=== PATIENT | female | born 1985 | race Hispanic/Latino ===

== ENCOUNTER 2025-01-04 17:22 | Emergency (ER) | payer OTHER ==
[~2025-01-04] VITALS: Ht 160 cm; Wt 62.2 kg
[~2025-01-04 17:22] MED LIST: CHLORDIAZEPOXID25 MG PO; FOLIC ACID1 MG PO; LISINOPRIL40 MG PO; MAG-OXIDE400 MG PO; MAGNESIUM OXID400 M1 PO; MAGOX 400400 MG PO; METOPROLOL SUCC25 MG PO; NALTREXONE HCL50 MG PO; OMEPRAZOLE20 MG PO; ONDANSETRON ODT8 MG PO; POTASSIUM CHLO20 ME1 PO; THIAMINE HCL100 MG PO; VIVITROL380 MG IM; XANAX0.5 MG PO
[2025-01-04 18:35] LABS: BASOPHILS 0.7 % (0-2); HEMATOCRIT 38.1 % (35.0-50.0); HEMOGLOBIN 13.2 g/dL (12.0-18.0); LYMPHOCYTES 34.6 % (24-44); MCH 29.7 (27-36); MCHC 34.6 g/dl (30-36); MCV 85.7 fl (81-99); MONOCYTES 5.7 % (0-12); PLATELET COUNT 157 K/uL (140-440); RBC 4.44 M/ul (4.3-5.7); RDW 19.7 (10.5-15.0)
[2025-01-04 18:56] LABS: ACETAMINOPHEN 0 ug/mL (10-30); ALBUMIN/GLOBULIN RATIO 0.87 (1.1-2.4); ALKALINE PHOSPHATASE 52 U/L (46-116); ALT (SGPT) 26 U/L (14-59); ANION GAP 18.4 (7-21); AST (SGOT) 37 U/L (15-37); BILIRUBIN, TOTAL 0.4 mg/dL (0.2-1.0); CALCIUM 8.6 mg/dL (8.5-10.1); CARBON DIOXIDE 26 mmol/L (21-32); CHLORIDE 99 mmol/L (98-107); CREATININE, SERUM 0.51 mg/dL (0.55-1.02); GLOMERULAR FILTRATION RATE,EST 121 mL/min (>60); POTASSIUM 4.4 mmol/L (3.5-5.1); PROTEIN, TOTAL 8.6 g/dL (6.4-8.2); SALICYLATE 1.4 mg/dL (2.8-20.0); UREA NITROGEN 5 mg/dL (7-18)
[2025-01-04 18:59] LABS: ALCOHOL, MEDICAL 372 ng/dL (<3)
[2025-01-04] MEDS ORDERED: IBUPROFEN 600 MG TAB PO ONE (19:45)
[2025-01-04] MEDS ORDERED: ONDANSETRON 4 MG TAB ODT SL ONE (19:45)
[2025-01-04 19:46] LABS: AMPHETAMINES, URINE NEGATIVE (NEGATIVE); BARBITURATES, URINE NEGATIVE (NEGATIVE); BENZODIAZEPINE, URINE NEGATIVE (NEGATIVE); BUPRENORPHINE, URINE NEGATIVE (NEGATIVE); CANNABINOID, URINE NEGATIVE (NEGATIVE); COCAINE, URINE NEGATIVE (NEGATIVE); ECSTASY, URINE NEGATIVE (NEGATIVE); FENTANYL, URINE NEGATIVE (NEGATIVE); METHADONE, URINE NEGATIVE (NEGATIVE); OPIATES, URINE NEGATIVE (NEGATIVE); OXYCODONE, URINE NEGATIVE (NEGATIVE); PHENCYCLIDINE, URINE NEGATIVE (NEGATIVE)
[2025-01-04] MEDS ORDERED: LORazepam 1 MG TAB PO ONE (22:15)
[2025-01-04] MEDS ORDERED: PROMETHAZINE HCL 25 MG TAB PO ONE (22:15)
[2025-01-05 00:10] VITALS: BP 101/84
== END 2025-01-05 00:10 | disposition left against medical advice (07) ==
LOC: ED 17:22
PROVIDERS: Emergency Medicine
DX: F10.139 Alcohol abuse with withdrawal, unspecified (principal); R45.851 Suicidal ideations; Z79.899 Other long term (current) drug therapy; Z53.29 Procedure and treatment not carried out because of patient's decision for other reasons
CPT/HCPCS: 36415; 80053; 80307; 84443; 84703; 85025; 99284; A9270; A9270-GY; G0480

== ENCOUNTER 2025-06-09 15:22 | Emergency (ER) | payer OTHER ==
[~2025-06-09] VITALS: Ht 160 cm; Wt 58.0 kg
--- OUTSIDE RECORDS SUMMARY | ~2025-06-09 | XMS | Continuity of Care Document ---
Demographics + + + | Address | [address] | | | [place] [address] | + + + | Preferred Language | Unknown | + + + | Marital Status | Unknown | + + + | Sikh Affiliation | Unknown | + + + | Race | Unknown | + + + | Ethnic Group | Not or | + + + Author + + + | Author | [facility] | + + + | Organization | [facility] | + + + | Address | [address] | | | [place] [address] | + + + | Phone | | + + + Care Team Providers + + + + | Care Environmental Studies Department Chair Name | Role | Phone | + + + + Unavailable | Unavailable | + + + + Allergies No information. Encounters No information. Functional Status No information. Immunizations No information. Medications No information. Problems + + + + | date | description | facility | + + + + | 2025-04-28 02:51:51 | Alcohol use, unspecified, | IHDE | | | uncomplicated | | + + + + | 2025-04-28 02:51:51 | Alcohol use, unspecified | IHDE | | | with intoxication, | | | | uncomplicated | | + + + + Procedures No information. Results/Labs No information. Social History +--------+ + + | date | description | facility | +--------+ + + Vital Signs No information."
--- OUTSIDE RECORDS SUMMARY | 2025-06-09 15:29 | XMS ---
PreManage Notification: DON PEARSON Security Sane Rn Events No recent Security Events currently on file CRITERIA MET - [facility] - 2 Visits in 30 Days - [facility] - 3 Facilities in 90 Days CARE PROVIDERS BOBBI GRAY [facility] Current PHONE: [phone] NEO ORTIZ [facility] Current PHONE: Unknown Halina has no Care Guidelines for this patient. EArchie VISIT COUNT (12 MO.) [address] [place] TOTAL 5 NOTE: Visits indicate total known visits. ED/UCC VISIT TRACKING (12 MO.) 06/09/2025 15:23 [facility] [place] TYPE: Emergency COMPLAINT: - WITHDRAWL SYMPTOMS 05/20/2025 16:27 [facility] [place] TYPE: Emergency DIAGNOSES: - Alcohol use, unspecified with withdrawal, uncomplicated - ALCOHOL DETOX 04/27/2025 21:05 [facility] [place] TYPE: Emergency DIAGNOSES: - Alcohol use, unspecified with intoxication, uncomplicated - Alcohol use, unspecified, uncomplicated - Alcohol detox 01/04/2025 17:23 [facility] [place] TYPE: Emergency COMPLAINT: - WITHDRAWL DIAGNOSES: - Alcohol abuse with withdrawal, unspecified - Other terminal press operator (current) drug therapy - Procedure and treatment not carried out because of patient's decision for other reasons - Suicidal ideations 08/13/2024 19:45 [facility] [place] TYPE: Emergency COMPLAINT: - VOMITING INPATIENT VISIT TRACKING (12 MO.) 08/14/2024 09:21 [facility] [place] TYPE: Medical Surgical COMPLAINT: - ETOH WITHDRAWAL/DEHYDRATION/NAUSEA/VOMITING DIAGNOSES: - Acute kidney failure, unspecified - Acute kidney failure, unspecified - Alcohol abuse with withdrawal, unspecified - Alcohol abuse with withdrawal, unspecified - Alcohol dependence with withdrawal, unspecified - Alcohol induced acute pancreatitis without necrosis or infection - Alcohol induced acute pancreatitis without necrosis or infection - Dehydration - Dehydration - Fatty (change of) liver, not elsewhere classified - Fatty (change of) liver, not elsewhere classified - Hypokalemia - Hypokalemia - Hypomagnesemia - Hypomagnesemia - Other terminal press operator (current) drug therapy - Other terminal press operator (current) drug therapy - Other pancytopenia - Other pancytopenia - Other secondary thrombocytopenia - Other secondary thrombocytopenia [id number]
[2025-06-09 15:53] LABS: BASOPHILS 0.8 % (0.1-1.2); EOSINOPHILS 2.1 % (0.7-5.8); LYMPHOCYTES 16.6 % (19.3-51.7); MCH 23.8 PG (25.6-32.2); MCHC 31.2 g/dL (32.2-35.5); MCV 76.4 fL (79.4-94.8); MONOCYTES 4.2 % (4.7-12.5); NEUTROPHILS 76.0 % (34.0-71.1); RBC 4.45 M/uL (3.93-5.22)
[2025-06-09] MEDS ORDERED: SODIUM CHLORIDE 0.9% 500 ML IV ONE (16:00)
[2025-06-09] MEDS ORDERED: SODIUM CHLORIDE 0.9% 1,000 ML IV PRN (16:00)
[2025-06-09 16:05] LABS: ALT (SGPT) 39.0 U/L (14-59); AST (SGOT) 63.0 U/L (15-37); GLOMERULAR FILTRATION RATE,EST 100.0 mL/min (>60); PROTEIN, TOTAL 8.8 g/dL (6.4-8.2); UREA NITROGEN 5.0 mg/dL (7-18)
[2025-06-09] MEDS ORDERED: LORazepam 2 MG/ML VIAL IV ONE (16:15)
[2025-06-09] MEDS ORDERED: CHLORDIAZEPOXIDE 25 MG CAP PO ONE (16:45)
[2025-06-09] MEDS ORDERED: CHLORDIAZEPOXID25 MG PO (17:29)
[2025-06-09 17:40] VITALS: BP 121/93
== END 2025-06-09 17:45 | disposition home or self-care (01) ==
LOC: ED 15:22
PROVIDERS: Emergency Medicine
DX: F10.939 Alcohol use, unspecified with withdrawal, unspecified (principal); Z88.8 Allergy status to other drugs, medicaments and biological substances; Z79.899 Other long term (current) drug therapy
CPT/HCPCS: 36415; 80053; 83735; 84703; 85025; 96374; 96375; 99284-25; J2060; J2405; J7030

== ENCOUNTER 2025-07-13 21:08 | Emergency (ER) | payer OTHER ==
[~2025-07-13] VITALS: Ht 160 cm; Wt 56.0 kg
--- OUTSIDE RECORDS SUMMARY | ~2025-07-13 | XMS | Continuity of Care Document ---
Demographics + + + | Address | [address] | | | [place] [address] | + + + | Preferred Language | Unknown | + + + | Marital Status | Unknown | + + + | Sikh Affiliation | Unknown | + + + | Race | Unknown | + + + | Ethnic Group | Not or | + + + Author + + + | Author | [place] | + + + | Organization | [place] | + + + | Address | [address] | | | [place] [address] | + + + | Phone | | + + + Care Team Providers + + + + | Care General Manager In Training Name | Role | Phone | + [...]
--- OUTSIDE RECORDS SUMMARY | 2025-07-13 21:11 | XMS ---
PreManage Notification: DON PEARSON Security Money Counter Events No recent Security Events currently on file CRITERIA MET - [facility] - 2 Visits in 30 Days - [facility] - 3 Facilities in 90 Days CARE PROVIDERS BOBBI GRAY [facility] Current PHONE: [phone] NEO ORTIZ [facility] Current PHONE: Unknown Halina has no Care Guidelines for this patient. E.Jaren VISIT COUNT (12 MO.) 4 [facility] 1 [facility] [address] [facility] [place] TOTAL 7 NOTE: Visits indicate total known visits. ED/UCC VISIT TRACKING (12 MO.) 07/13/2025 21:09 [facility] TYPE: Emergency COMPLAINT: - ETOH WITHDRAWAL 06/27[facility]2025 13[facility] TYPE: Emergency DIAGNOSES: - Acute kidney failure, unspecified - Alcohol use, unspecified with intoxication, uncomplicated - Alcohol use, unspecified with withdrawal, uncomplicated - Hypo-osmolality and hyponatremia - Alcohol Detox - Withdrawal (Alcohol) 06/09/2025 15:23 [facility] [place] TYPE: Emergency COMPLAINT: - WITHDRAWL SYMPTOMS DIAGNOSES: - Alcohol use, unspecified with withdrawal, unspecified - Allergy status to other drugs, medicaments and biological substances - Other extermination supervisor (current) drug therapy 05/20/2025 16:27 [facility] [place] TYPE: Emergency DIAGNOSES: - Alcohol use, unspecified with withdrawal, uncomplicated - ALCOHOL DETOX 04/27/2025 21:05 [facility] [place] TYPE: Emergency DIAGNOSES: - Alcohol use, unspecified with intoxication, uncomplicated - Alcohol use, unspecified, uncomplicated - Alcohol detox 01/04/2025 17:23 [facility] [place] TYPE: Emergency COMPLAINT: - WITHDRAWL DIAGNOSES: - Alcohol abuse with withdrawal, unspecified - Other nursing home (current) drug therapy - Procedure and treatment not carried out because of patient's decision for other reasons - Suicidal ideations 08/13/2024 19:45 [facility] [place] TYPE: Emergency COMPLAINT: - VOMITING INPATIENT VISIT TRACKING (12 MO.) 06/27/2025 13:52 [facility] ([place]) TYPE: Medical Surgical DIAGNOSES: - Acute kidney failure, unspecified - Alcohol dependence with intoxication, unspecified - Alcohol use, unspecified with intoxication, uncomplicated - Alcohol use, unspecified with withdrawal, uncomplicated - Hypo-osmolality and hyponatremia - Nausea with vomiting, unspecified - Other pancytopenia 08/14/2024 09:21 [facility] [place] TYPE: Medical [...] Hypokalemia - Hypomagnesemia - Hypomagnesemia - Other nursing home (current) drug therapy - Other extermination supervisor (current) drug therapy - Other pancytopenia - Other pancytopenia - Other secondary thrombocytopenia - Other secondary thrombocytopenia [id number]
[2025-07-13] MEDS ORDERED: FAMOTIDINE 20 MG/ 2 ML VIAL IV ONE (21:30)
[2025-07-13] MEDS ORDERED: THIAMINE HCL 200 MG/2 ML VIAL IV ONE (21:30)
[2025-07-13] MEDS ORDERED: LACTATED RINGER'S 1,000 ML IV ONE ×2 (21:30→22:30)
[2025-07-13 21:42] LABS: BASOPHILS 2.4 % (0.1-1.2); EOSINOPHILS 2.7 % (0.7-5.8); LYMPHOCYTES 40.1 % (19.3-51.7); MCH 23.9 PG (25.6-32.2); MCHC 30.7 g/dL (32.2-35.5); MCV 77.6 fL (79.4-94.8); MONOCYTES 6.0 % (4.7-12.5); NEUTROPHILS 48.8 % (34.0-71.1); RBC 4.15 M/uL (3.93-5.22)
[2025-07-13] MEDS ORDERED: LORazepam 2 MG/ML VIAL IV ONE (21:45)
[2025-07-13 21:58] LABS: ALT (SGPT) 115.0 U/L (14-59); AST (SGOT) 94.0 U/L (15-37); GLOMERULAR FILTRATION RATE,EST 110.0 mL/min (>60); PROTEIN, TOTAL 9.6 g/dL (6.4-8.2); UREA NITROGEN 5.0 mg/dL (7-18)
[2025-07-13 22:42] LABS: BLOOD/HGB, URINE TRACE-L (Negative); KETONE, URINE TRACE (Negative); LEUK ESTERASE, URINE TRACE (negative); NITRITE, URINE NEGATIVE (negative)
[2025-07-13 22:47] LABS: BACTERIA, URINE 1+ /hpf (negative); CASTS, URINE NONE SEEN \\lpf; CRYSTALS, URINE NONE SEEN (0-1+); EPITHELIAL CELLS, URINE SQUAMOUS 2+ /lpf (0-1+)
[2025-07-13 22:48] LABS: REFLEX CULTURE, URINE No (No)
[2025-07-13] MEDS ORDERED: MAGNESIUM OXIDE 400 MG TABLET PO ONE (23:00)
[2025-07-13] MEDS ORDERED: diazePAM 5 MG TAB PO ONE (23:15)
[2025-07-14] MEDS ORDERED: LORazepam 2 MG/ML VIAL IV/IM PRN (00:30)
[2025-07-14] MEDS ORDERED: LORazepam 1 MG TAB PO PRN (00:30)
[2025-07-14] MEDS ORDERED: LORazepam 2 MG/ML VIAL ONE (00:32)
[2025-07-14] MEDS ORDERED: LACTATED RINGER'S 1,000 ML IV SCH (00:45)
[2025-07-14] MEDS ORDERED: LORazepam 2 MG/ML VIAL IV SCH (02:00)
[2025-07-14 02:49] LABS: AMPHETAMINES, URINE NEGATIVE (NEGATIVE); BARBITURATES, URINE NEGATIVE (NEGATIVE); BENZODIAZEPINE, URINE NEGATIVE (NEGATIVE); CANNABINOID, URINE NEGATIVE (NEGATIVE); COCAINE, URINE NEGATIVE (NEGATIVE); ECSTASY, URINE NEGATIVE (NEGATIVE); FENTANYL, URINE NEGATIVE (NEGATIVE); METHADONE, URINE NEGATIVE (NEGATIVE); OPIATES, URINE NEGATIVE (NEGATIVE); OXYCODONE, URINE NEGATIVE (NEGATIVE); PHENCYCLIDINE, URINE NEGATIVE (NEGATIVE)
[2025-07-14 06:32] LABS: GLOMERULAR FILTRATION RATE,EST 120.0 mL/min (>60); UREA NITROGEN 6.0 mg/dL (7-18)
[2025-07-14] MEDS ORDERED: FOLIC ACID 1 MG/0.2 ML ML IV SCH (08:00)
[2025-07-14] MEDS ORDERED: THIAMINE HCL 200 MG/2 ML VIAL IV SCH (08:00)
[2025-07-14] MEDS ORDERED: PEPCID20 MG PO (09:44)
[2025-07-14] MEDS ORDERED: ONDANSETRON ODT4 MG PO (09:44)
[2025-07-14] MEDS ORDERED: LORazepam 1 MG TAB PO ONE (10:45)
[2025-07-14] MEDS ORDERED: ONDANSETRON 4 MG TAB ODT SL ONE (10:45)
[2025-07-14 11:10] VITALS: BP 115/85
[2025-07-15] MEDS ORDERED: MULTIVITAMINS THERAPEUTIC 1 EA TAB PO SCH (08:00)
== END 2025-07-14 11:10 | disposition home or self-care (01) ==
LOC: ED 21:08
PROVIDERS: Internal Medicine
DX: F10.129 Alcohol abuse with intoxication, unspecified (principal); I10 Essential (primary) hypertension; D61.818 Other pancytopenia; Z88.8 Allergy status to other drugs, medicaments and biological substances; Z79.899 Other long term (current) drug therapy
CPT/HCPCS: 36415; 80048; 80053; 80307; 81001; 83690; 83735; 84703; 85025; 96361; 96374; 96375; 96376; 99284-25; A9270; A9270-GY; J1790; J2060; J2405; J3411; J7121

== ENCOUNTER 2025-09-02 21:03 | Emergency (ER) | payer OTHER ==
[~2025-09-02] VITALS: Ht 160 cm; Wt 58.2 kg
[~2025-09-02 21:03] MED LIST changes: +ONDANSETRON ODT4 MG PO; +PEPCID20 MG PO
--- OUTSIDE RECORDS SUMMARY | 2025-09-02 21:05 | XMS ---
PreManage Notification: DON PEARSON Security Compounding And Finishing Supervisor Events No recent Security Events currently on file CRITERIA MET - 6 ED Visits in 6 Months - [facility] - 2 Visits in 30 Days - [facility] - 3 Facilities in 90 Days CARE PROVIDERS BOBBI GRAY [facility] Current PHONE: [phone] NEO ORTIZ [facility] Current PHONE: Unknown Halina has no Care Guidelines for this patient. E.D. VISIT COUNT (12 MO.) 4 [facility] 3 [facility] [address] [facility] TOTAL 9 NOTE: Visits indicate total known visits. ED/UCC VISIT TRACKING (12 MO.) 09/02/2025 21:05 [facility] [place] TYPE: Emergency COMPLAINT: - ALCOHOL WITHDRAWL 08/05/2025 19:01 [facility] [place] TYPE: Emergency DIAGNOSES: - Alcohol use, unspecified with withdrawal, uncomplicated - ALCOHOL WITHDRAWL 07/15/2025 23:22 [facility] [place] TYPE: Emergency COMPLAINT: - ALCOHOL DETOX DIAGNOSES: - ALCOHOL DETOX 07/13/2025 21:09 [facility] [place] TYPE: Emergency COMPLAINT: - ETOH WITHDRAWAL DIAGNOSES: - Alcohol abuse with intoxication, unspecified - Allergy status to other drugs, medicaments and biological substances - Essential (primary) hypertension - Nausea with vomiting, unspecified - Other rn long term care (current) drug therapy - Other pancytopenia 06/27/2025 [facility] Emergency DIAGNOSES: - Acute kidney failure, unspecified - Alcohol use, unspecified with intoxication, uncomplicated - Alcohol use, unspecified with withdrawal, uncomplicated - Hypo-osmolality and hyponatremia - Alcohol Detox - Withdrawal (Alcohol) 06/09/2025 15:23 [facility] [place] TYPE: Emergency COMPLAINT: - WITHDRAWL SYMPTOMS DIAGNOSES: - Alcohol use, unspecified with withdrawal, unspecified - Allergy status to other drugs, medicaments and biological substances - Other fci (current) drug therapy 05/20/2025 16:27 [facility] [place] TYPE: Emergency DIAGNOSES: - Alcohol use, unspecified with withdrawal, uncomplicated - ALCOHOL DETOX 04/27/2025 21:05 [facility] TYPE: Emergency DIAGNOSES: - Alcohol use, unspecified with intoxication, uncomplicated - Alcohol use, unspecified, uncomplicated - Alcohol detox 01/04/2025 17:23 [facility] [place] TYPE: Emergency COMPLAINT: - WITHDRAWL DIAGNOSES: - Alcohol abuse with withdrawal, unspecified - Other fci (current) drug therapy - Procedure and treatment not carried out because of patient's decision for other reasons - Suicidal ideations INPATIENT VISIT TRACKING (12 MO.) 07/15/2025 23:22 [facility] TYPE: Medical Surgical DIAGNOSES: - Alcohol use, unspecified with withdrawal, unspecified - Nausea with vomiting, unspecified 06/27/2025 13:52 [facility] BRASHER ([place] [place]) TYPE: Medical Surgical DIAGNOSES: - Acute kidney failure, unspecified - Alcohol dependence with intoxication, unspecified - Alcohol use, unspecified with intoxication, uncomplicated - Alcohol use, unspecified with withdrawal, uncomplicated - Hypo-osmolality and hyponatremia - Nausea with vomiting, unspecified - Other pancytopenia [id number]
[2025-09-02 21:24] LABS: BASOPHILS 0.8 % (0.1-1.2); EOSINOPHILS 0.9 % (0.7-5.8); LYMPHOCYTES 51.9 % (19.3-51.7); MCH 24.5 PG (25.6-32.2); MCHC 30.9 g/dL (32.2-35.5); MCV 79.2 fL (79.4-94.8); MONOCYTES 7.4 % (4.7-12.5); NEUTROPHILS 38.8 % (34.0-71.1); RBC 4.57 M/uL (3.93-5.22)
[2025-09-02] MEDS ORDERED: FAMOTIDINE 20 MG/ 2 ML VIAL IV ONE (21:30)
[2025-09-02] MEDS ORDERED: LACTATED RINGER'S 1,000 ML IV ONE ×2 (21:30→23:00)
[2025-09-02] MEDS ORDERED: THIAMINE HCL 200 MG/2 ML VIAL IV ONE (21:30)
[2025-09-02 21:51] LABS: ALT (SGPT) 36.0 U/L (14-59); AST (SGOT) 49.0 U/L (15-37); GLOMERULAR FILTRATION RATE,EST 119.0 mL/min (>60); PROTEIN, TOTAL 9.3 g/dL (6.4-8.2); UREA NITROGEN 4.0 mg/dL (7-18)
[2025-09-02 22:54] LABS: BLOOD/HGB, URINE NEGATIVE (Negative); KETONE, URINE NEGATIVE (Negative); LEUK ESTERASE, URINE SMALL (negative); NITRITE, URINE NEGATIVE (negative)
[2025-09-02 23:00] LABS: EPITHELIAL CELLS, URINE SQUAMOUS 4+ /lpf (0-1+)
[2025-09-02 23:01] LABS: BACTERIA, URINE 2+ /hpf (negative); CASTS, URINE NONE SEEN \\lpf; CRYSTALS, URINE NONE SEEN (0-1+); REFLEX CULTURE, URINE No (No)
[2025-09-02 23:08] LABS: AMPHETAMINES, URINE NEGATIVE (NEGATIVE); BARBITURATES, URINE NEGATIVE (NEGATIVE); BENZODIAZEPINE, URINE NEGATIVE (NEGATIVE); CANNABINOID, URINE NEGATIVE (NEGATIVE); COCAINE, URINE NEGATIVE (NEGATIVE); ECSTASY, URINE NEGATIVE (NEGATIVE); FENTANYL, URINE NEGATIVE (NEGATIVE); METHADONE, URINE NEGATIVE (NEGATIVE); OPIATES, URINE NEGATIVE (NEGATIVE); OXYCODONE, URINE NEGATIVE (NEGATIVE); PHENCYCLIDINE, URINE NEGATIVE (NEGATIVE)
[2025-09-02] MEDS ORDERED: ONDANSETRON ODT4 MG PO (23:41)
[2025-09-02] MEDS ORDERED: PEPCID20 MG PO (23:41)
[2025-09-02] MEDS ORDERED: NITROFURANTOIN MONOHYD MACROCR 100 MG HOME.PACK PO ONE (23:45)
[2025-09-02] MEDS ORDERED: ONDANSETRON 4 MG HOME.PACK SL ONE (23:45)
[2025-09-02] MEDS ORDERED: MACROBID 100 M100 MG PO (23:45)
[2025-09-03 00:10] VITALS: BP 104/69
== END 2025-09-03 00:10 | disposition home or self-care (01) ==
LOC: ED 21:03
PROVIDERS: Internal Medicine
DX: K29.20 Alcoholic gastritis without bleeding (principal); F10.90 Alcohol use, unspecified, uncomplicated; N39.0 Urinary tract infection, site not specified; I10 Essential (primary) hypertension; Z88.8 Allergy status to other drugs, medicaments and biological substances
CPT/HCPCS: 36415; 71045; 80053; 80307; 81001; 83690; 84703; 85025; 96361; 96374; 96375; 99285-25; A9270; G0480; J2405; J3411; J7121

== ENCOUNTER 2025-09-09 13:10 | Inpatient (IN) | payer OTHER ==
[~2025-09-09] VITALS: Ht 160 cm; Wt 59.8 kg
[~2025-09-09 13:10] MED LIST changes: +MACROBID 100 M100 MG PO
--- OUTSIDE RECORDS SUMMARY | 2025-09-09 13:17 | XMS ---
PreManage Notification: DON PEARSON Security It Lead Events No recent Security Events currently on file CRITERIA MET - 6 ED Visits in 6 Months - [facility] - 2 Visits in 30 Days - [facility] - 3 Facilities in 90 Days CARE PROVIDERS BOBBI GRAY [facility] Current PHONE: [phone] NEO ORTIZ [facility] Current PHONE: Unknown Halina has no Care Guidelines for this patient. E.D. VISIT COUNT (12 MO.) 5 [facility] 3 [facility] [address] [facility] TOTAL 10 NOTE: Visits indicate total known visits. ED/UCC VISIT TRACKING (12 MO.) 09/09/2025 13:11 [facility] [place] TYPE: Emergency COMPLAINT: - ALCOHOL WITHDRAWAL 09/02/2025 21:05 [facility] [place] TYPE: Emergency COMPLAINT: - ALCOHOL WITHDRAWL DIAGNOSES: - Alcohol abuse with withdrawal, unspecified - Alcohol use, unspecified, uncomplicated - Alcoholic gastritis without bleeding - Allergy status to other drugs, medicaments and biological substances - Essential (primary) hypertension - Urinary tract infection, site not specified 08/05/2025 19:01 [facility] [place] TYPE: Emergency DIAGNOSES: - Alcohol use, unspecified with withdrawal, uncomplicated - ALCOHOL WITHDRAWL 07/15/2025 23:22 [facility] [place] TYPE: Emergency COMPLAINT: - ALCOHOL DETOX DIAGNOSES: - ALCOHOL DETOX 07/13/2025 21:09 [facility] [place] TYPE: Emergency COMPLAINT: - ETOH WITHDRAWAL DIAGNOSES: - Alcohol abuse with intoxication, unspecified - Allergy status to other drugs, medicaments and biological substances - Essential (primary) hypertension - Nausea with vomiting, unspecified - Other joint terminal attack controller (current) drug therapy - Other pancytopenia 06/27/2025 13:52 [facility] TYPE: Emergency DIAGNOSES: - [...] drugs, medicaments and biological substances - Other joint terminal attack controller (current) drug therapy 05/20/2025 16:27 [facility] [place] TYPE: Emergency DIAGNOSES: - Alcohol use, unspecified with withdrawal, uncomplicated - ALCOHOL DETOX 04/27/2025 21:05 [facility] [place] TYPE: Emergency DIAGNOSES: - Alcohol use, unspecified with intoxication, uncomplicated - Alcohol use, unspecified, uncomplicated - Alcohol detox 01/04/2025 17:23 [facility] [place] [facility]: [facility] COMPLAINT: - WITHDRAWL DIAGNOSES: - Alcohol abuse with withdrawal, unspecified - Other joint terminal attack controller (current) drug therapy - Procedure and treatment not carried out because of patient's decision for other reasons - Suicidal ideations INPATIENT VISIT TRACKING (12 MO.) 07/15/2025 23:22 [facility] [place] TYPE: Medical Surgical DIAGNOSES: - Alcohol use, unspecified with withdrawal, unspecified - Nausea with vomiting, unspecified 06/27/2025 13:52 [facility] TYPE: Medical Surgical DIAGNOSES: - Acute kidney failure, unspecified - Alcohol dependence with intoxication, unspecified - Alcohol use, unspecified with intoxication, uncomplicated - Alcohol use, unspecified with withdrawal, uncomplicated - Hypo-osmolality and hyponatremia - Nausea with vomiting, unspecified - Other pancytopenia [id number]
[2025-09-09] MEDS ORDERED: SODIUM CHLORIDE 0.9% 500 ML IV ONE (13:45)
[2025-09-09] MEDS ORDERED: SODIUM CHLORIDE 0.9% 1,000 ML IV PRN (14:00)
[2025-09-09] MEDS ORDERED: LORazepam 2 MG/ML VIAL IV ONE (14:00)
[2025-09-09] MEDS ORDERED: PHENOBARBITAL SOD 130 MG/ML VIAL IV ONE (14:00)
[2025-09-09 14:10] LABS: BASOPHILS 0.7 % (0.1-1.2); EOSINOPHILS 1.4 % (0.7-5.8); LYMPHOCYTES 17.9 % (19.3-51.7); MCH 25.0 PG (25.6-32.2); MCHC 31.9 g/dL (32.2-35.5); MCV 78.3 fL (79.4-94.8); MONOCYTES 11.8 % (4.7-12.5); NEUTROPHILS 67.8 % (34.0-71.1); RBC 4.24 M/uL (3.93-5.22)
[2025-09-09 14:36] LABS: ALCOHOL, MEDICAL 255.0 mg/dL (<3); ALT (SGPT) 52.0 U/L (14-59); AST (SGOT) 111.0 U/L (15-37); GLOMERULAR FILTRATION RATE,EST 103.0 mL/min (>60); PROTEIN, TOTAL 9.1 g/dL (6.4-8.2); UREA NITROGEN 8.0 mg/dL (7-18)
[2025-09-09] MEDS ORDERED: FOLIC ACID 1 MG/0.2 ML ML IV SCH (15:44)
[2025-09-09] MEDS ORDERED: THIAMINE HCL 200 MG/2 ML VIAL IV SCH (15:44)
[2025-09-09] MEDS ORDERED: LORazepam 2 MG/ML VIAL IV/IM PRN (15:45)
[2025-09-09] MEDS ORDERED: ACETAMINOPHEN 325 MG TAB PO PRN (15:45)
[2025-09-09] MEDS ORDERED: LACTATED RINGER'S 1,000 ML IV SCH (15:45)
[2025-09-09] MEDS ORDERED: PROCHLORPERAZINE EDISYLATE 10 MG/2 ML VIAL IV PRN (15:45)
--- NOTE | 2025-09-09 17:00 | NUR ---
PT TO CCU 128 VIA KIERA FROM ER - AWAKE AND ABLE TO WALK WITH STANDBY TO BR TO VOID 300ML URINE. PT ON PERIOD - DECLINES NEEDING ANY SUPPLIES AT THIS TIME - UA SENT TO LAB, PT WAS IN ER ON 09/02/25 AND FILLED RX BUT REPORTS THAT SHE DID NOT TAKE ANY OF THE MEDICATION YET. BACK TO BED - ORIENTED TO ROOM AND PLAN OF CARE, CALL LIGHT IN REACH AND BED ALARM ON, VISIBLE TO RN STATION. PT WANTS HER PURSE AND CELL PHONE AT BEDSIDE. EYES CLOSED AND RESP EVEN AT 21. ANSWERS QUESTIONS. DOES NOT KNOW DATE OR DAY OF WEEK, REPORTS THAT SHE DROVE HER CAR HERE, REPORTS LAST DRINK WAS ON WAY TO HOSPITAL. REPORTS HER AND MOTHER KNOW SHE IS HERE. DECLINES DINNER OFFER - C/O HEADACHE, NAUSEA, AND TREMORS - EASILY FALLS ASLEEP WITH HR 118. 94% RA. IV FUSING WNL. SCDS ON BED DECLINES THEM AT THIS TIME. RN WOKE PT UP TO TEACH USE OF IS - RESP DEVISE- PT HAS TEMP 99 AND ENCOURAGED TCDB EXERCISES TO EXPAND LUNGS. PT IS WEARING HER BALL CAP WHILE IN BED.
[2025-09-09 17:07] VITALS: BP 125/94
[2025-09-09 17:16] LABS: BLOOD/HGB, URINE LARGE (Negative); KETONE, URINE TRACE (Negative); LEUK ESTERASE, URINE NEGATIVE (negative); NITRITE, URINE NEGATIVE (negative)
[2025-09-09 17:23] LABS: BACTERIA, URINE RARE /hpf (negative); CASTS, URINE HYALINE 1+ \\lpf; CRYSTALS, URINE NONE SEEN (0-1+); EPITHELIAL CELLS, URINE SQUAMOUS 2+ /lpf (0-1+); REFLEX CULTURE, URINE No (No)
[2025-09-09 17:45] VITALS: BP 125/94
--- NOTE | 2025-09-09 17:57 | NUR ---
THIS RN CONTINUES TO BE AT BEDSIDE SINCE ADMISSION, PT EYES CLOSED, BED ALARM ON, CALL LIGHT IN REACH, HR 120'S, RESP 18. ADMIT COMPLETE, REFERRALS MADE FOR NUTRITION AND DC OFFICE SERVICES SPECIALIST. UA RESULTED.
--- NOTE | 2025-09-09 19:08 | NUR ---
dr johnston here - discussed plan of care and previous diagnosis, ua and esophagitis. see new orders. pt unchanged, resp 19, hr 119.
[2025-09-09 20:00] VITALS: BP 125/94
[2025-09-09] MEDS ORDERED: LACTATED RINGER'S 1,000 ML IV ONE (20:30)
--- NOTE | 2025-09-09 20:30 | NUR ---
CALLED TO REPORT PATIENT UP TO BATHROOM SUSTAINING HEART RATE OF 160'S TO 170'S WHILE OUT OF BED. SHE VOIDED 200ML CONCENTRATED URINE, ONCE PATIENT BACK TO BED AT REST HEART RATE CONTINUES TO SUSTAIN AT 128-130'S AT REST. THIS RN VOICED CONCERN THAT PATIENT MAY BENEFIT FROM MORE FLIUD RESUSCITATION, NEW ORDER FOR LR BOLUS X1 AND INCREASE MAINTENANCE FLUID TO 125ML/HR.
[2025-09-09 20:50] VITALS: BP 125/94
[2025-09-09] MEDS ORDERED: PANTOPRAZOLE SODIUM 40 MG/10 ML VIAL IV SCH (21:00)
[2025-09-10 01:39] VITALS: BP 116/91
--- NOTE | 2025-09-10 01:45 | NUR ---
ROUNDING ON PATIENT WITH 0200 SCHEDULED DOSE OF PHENOBARBITAL, PATIENT RESTING IN BED EYES CLOSED, RELAX POSITION, ALERT TO NAME. PATIENT FOCUSED ASSESSMENT COMPLETE, PATIENT UP TO BEDSIDE COMMODE TO VOID 200ML YELLOW CONCENTRATED URINE. PATIENT BACK TO BED ONE PERSON ASSIST FOR UNSTEADY GAIT. PATIENT HEART RATE WITH ACTIVITY 125/MIN AT HIGHEST, NOT SUSTAINED, BACK TO REST HEART RATE IN 80'S/MIN. PATIENT REPORTS NO HEADACHE OR NAUSEA AT THIS TIME, CIWA 3.
[2025-09-10] MEDS ORDERED: PHENOBARBITAL SOD 130 MG/ML VIAL IV SCH (02:00)
[2025-09-10 05:23] LABS: MCH 25.5 PG (25.6-32.2); MCHC 31.9 g/dL (32.2-35.5); MCV 79.9 fL (79.4-94.8); RBC 3.18 M/uL (3.93-5.22)
[2025-09-10 05:36] LABS: LYMPHOCYTES, MANUAL DIFF 63; MONOCYTES, MANUAL DIFF 6; NEUTROPHILS, MANUAL DIFF 31
[2025-09-10 05:43] LABS: ALT (SGPT) 37.0 U/L (14-59); AST (SGOT) 80.0 U/L (15-37); GLOMERULAR FILTRATION RATE,EST 114.0 mL/min (>60); PHOSPHORUS, INORGANIC 3.0 mg/dL (2.5-4.9); UREA NITROGEN 7.0 mg/dL (7-18)
[2025-09-10 05:57] LABS: PROTEIN, TOTAL 6.6 g/dL (6.4-8.2)
[2025-09-10 06:47] VITALS: BP 133/93
[2025-09-10] MEDS ORDERED: SUCRALFATE 1 GM TAB PO SCH (07:00)
--- NOTE | 2025-09-10 07:26 | NUR ---
PATIENT REPORTS NAUSEA, ZOFRAN ADMNISTERED PRN, CIWA ASSESSMENT 4. PATIENT IS ALERT AND ORIENTED.
--- NOTE | 2025-09-10 07:30 | NUR ---
PATIENT BRUSHED HER TEETH AND WASHED HER FACE AND ALSO USED MOUTH WASH.
[2025-09-10] MEDS ORDERED: MULTIVITAMINS THERAPEUTIC 1 EA TAB PO SCH (08:00)
--- NOTE | 2025-09-10 08:01 | NUR ---
PT SITTING UP IN BED FO ASSESSMENT - CURRENT CIWA 11, MOST SIGNIFICANT FOR HEADACHE AND SWEATING, MILD ANXIETY. PT STATES SHE IS WANTING TO EAT BREAKFAST THIS AM, PREVIOUSLY ADMINISTERED ZOFRAN, ENCOURAGED TO TAKE EATING SLOWLY AND MONITOR FOR INCREASE PANCREATIC PAIN/NAUSEA. PT DENIES NEEDING TO VOID AT THIS TIME, REMAINS TACHICARDIC WITH MOVEMENT EVEN IN BED.
--- NOTE | 2025-09-10 08:13 | NUR ---
UR CLINICAL REVIEW: MCG-PER MCG REVIEW MEETS INPT FOR AUD/WITHDRAWL WITH NEED FOR CLOSE MONITORING, IVF AND MEDICATION MANAGEMENT PROVIDENCE INPT 09/09/25 @ 1547 ORDER MATCHES REG CLINICALS FAXED TO [facility] FOR AUTH REVIEW DISCHARGE DISPO PENDING FURTHER EVALUATION 09/11/25 DC REVIEW
[2025-09-10] MEDS ORDERED: MAGNESIUM SULFATE 2 GM/50 ML BAG IV ONE (09:00)
--- NOTE | 2025-09-10 09:09 | NUR ---
RN IN ROOM ROUNDING WITH MD - PT STATES SHE FEELS SLIGHTLY BETTER THAN YESTERDAY. REMAINS NAUSEATED, ABLE TO TAKE BITES OF BREAKFAST. VERBAL ORDER FOR 1L BOLUS LR FOR TACHICARDIA AND POOR URINE OUTPUT. IF NO URINE POST BOLUS WILL BLADDER SCAN.
[2025-09-10] MEDS ORDERED: LACTATED RINGER'S 1,000 ML IV ONE (09:15)
--- NOTE | 2025-09-10 09:42 | NUR ---
RN IN ROOM TO ADDRESS IV ALARM - PT RESTING IN BED ON SIDE WITH NO SIGN OF DISTRESS. CALL LIGHT AT SIDE.
--- NOTE | 2025-09-10 11:07 | NUR ---
PT USES CALL LIGHT TO REQUEST ASSISTANCE TO BATHROOM. 600ML URINE. PT STEADY ON FEET, "BILLY DIZZY". HR NOTED TO ELEVATE TO 160 AT HIGHEST WITH AMBULATION TO BATHROOM. PT STATES SHE "SORT OF" FEELS IT WHEN ITS THIS HIGH. RETURNS TO 100'S WITH REST IN BED AFTER APPROX 3 MINS. CURRENT CIWA 10, PRN ATIVAN GIVEN IV. CALL LIGHT IN REACH. BED ALARM ON.
--- NOTE | 2025-09-10 11:45 | NUR ---
Spoke with Nadia. She lives in [place] with her spouse and 2 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 She lives in a split level home and denies issues with the stairs. She needs a pcp as her pcp has moved. I added her to the [facility] list and will fu tomorrow if they have assigned her a pcp.She denies financial or safety issues. She would like to stop drinking alcohol and is willing to speak with [facility]. Plans on dc to home on dc. I contacted [facility] and they has staff out sick. They are unable to visit Nadia at the hospital. They request a face sheet and will call her to set an appointment. Face sheet emailed securely.
[2025-09-10] MEDS ORDERED: PHARMACY RENAL DOSE ADJUSTMENT 1 DOSE MISC PO SCH (12:00)
[2025-09-10 12:07] VITALS: BP 136/97
--- NOTE | 2025-09-10 12:34 | NUR ---
PT UP TO VOID - IMPROVED CIWA AFTER PREVIOUS PRN ATIVAN DOSE. CRACKERS PROVIDED FOR NAUSEA PER PT REQUEST. NO INTERESTED IN LUNCH TRAY. CALL LIGHT IN REACH.
--- NOTE | 2025-09-10 13:41 | NUR ---
PT USES CALL LIGHT TO REQUEST HELP TO BATHROOM. HR ELVATED TO 160 WITH AMBULATION BACK TO BED. RESTING RATE IN BED 90'S. PT DENIES NEEDS AT THIS TIME. CALL LIGHT IN REACH.
[2025-09-10] MEDS ORDERED: LORAZEPAM1 MG PO (13:42)
[2025-09-10] MEDS ORDERED: PRILOSEC OTC20 MG PO (13:43)
--- NOTE | 2025-09-10 14:49 | NUR ---
PT UP TO BATHROOM TO VOID WITH STANDBY ASSIST FOR LINE/TUBES. HR ELEVATED TO 140'S, RETURNS TO 90'S QUICKLY AFTER RESTING IN BED. CURRENT CIWA 2. SPRITE PROVIDED PER REQUEST. CALL LIGHT IN REACH. SIGNIFICANT OTHER IN ROOM.
[2025-09-10 15:59] VITALS: BP 137/97
--- NOTE | 2025-09-10 16:14 | NUR ---
PT UP TO BATHROOM TO VOID - REMAINS STABLE ON FEET NEEDING STANDBY ASSIST FOR LINES. HR ELEVATES BUT IMPROVED RECOVERY AND MAX RATE EACH TIME. PT VISITING APPROPRIATLY WITH SO IN ROOM. REQUESTS DINNER AND IS SITTING IN BED WITH SOME LIGHT ON. OVERALL IMPROVED APPEARANCE THROUGH SHIFT.
--- NOTE | 2025-09-10 16:47 | NUR ---
[facility]. Face sheet emailed to Genia Lo at [facility].
--- NOTE | 2025-09-10 20:00 | NUR ---
patient up to bathroom, steady on feet. denies feeling dizzy or light headed. patient HR noted to reach 150 with ambulation. patient back to bed and recovers quickly, HR now 80-90's. patient denies any further needs at this time. call light in reach.
[2025-09-10 21:08] VITALS: BP 139/106
--- NOTE | 2025-09-10 22:26 | NUR ---
PATIENT BACK TO BED AFTER USING RESTROOM, VOIDED 450ML YELLOW URINE, PATIENT CONTINUES TO MENSTRATE. NO CRAMPS OR FATIGUE REPORTED. HR UP TO 160S WITH AMBULATION. HR 106 WHEN BACK IN BED. PERSONAL BELONGINGS AND CALL LIGHT ARE WITHIN REACH.
[2025-09-11] VITALS (8 sets, daily range): BP systolic 115–132; BP diastolic 81–100
--- NOTE | 2025-09-11 00:06 | NUR ---
PATIENT RESTING WITH EYES CLOSED RESPIRATIONS EVEN AND UNLABORED. CALL LIGHT WITHIN REACH
--- NOTE | 2025-09-11 00:33 | NUR ---
PATIENT BACK TO BED AFTER VOIDING 450ML YELLOW URINE. PATIENT REPORTED ANXIETY AND FULL BODY SWEATS. PATIENT SCORED 14 ON CIWA GIVEN IMG ATIVAN. PATIENT ENDORSES MILD NAUSEA, TREMORS, MODERATE ANXIETY AND RESTLESSNESS. PATIENT GIVEN ICE PACK FOR SWEATING AND REMAINS AFEBRILE. PATIENT GIVEN FRESH ICE WATER, DENIES FURTHER NEEDS AT THIS TIME.
--- NOTE | 2025-09-11 03:59 | NUR ---
PATIENT LYING ON SIDE WITH EYES CLOSED, EVEN AND UNLABORED RESPIRATIONS. PERSONAL ITEMS AND CALL LIGHT ARE WITHIN REACH.
[2025-09-11 05:31] LABS: MCH 25.3 PG (25.6-32.2); MCHC 31.8 g/dL (32.2-35.5); MCV 79.4 fL (79.4-94.8); RBC 3.84 M/uL (3.93-5.22)
[2025-09-11 05:51] LABS: LYMPHOCYTES, MANUAL DIFF 51; MONOCYTES, MANUAL DIFF 12; NEUTROPHILS, MANUAL DIFF 37
[2025-09-11 05:56] LABS: ALT (SGPT) 57.0 U/L (14-59); AST (SGOT) 70.0 U/L (15-37); GLOMERULAR FILTRATION RATE,EST 115.0 mL/min (>60); PHOSPHORUS, INORGANIC 3.6 mg/dL (2.5-4.9); PROTEIN, TOTAL 7.1 g/dL (6.4-8.2); UREA NITROGEN 3.0 mg/dL (7-18)
--- NOTE | 2025-09-11 07:30 | NUR ---
THIS RN RECEIVED REPORT FROM NIGHT RNS. PATIENT IS CURRENTLY RESTING IN BED WITH EYES CLOSED. THIS RN ALLOWS PT TO REST AT THIS TIME. TELEMETRY IN PLACE, HR IN THE 80'S WHILE RESTING. CALL LIGHT IS WITHIN REACH.
[2025-09-11] MEDS ORDERED: FOLIC ACID 1 MG TAB PO SCH (08:00)
[2025-09-11] MEDS ORDERED: THIAMINE HCL 100 MG TAB PO SCH (08:00)
[2025-09-11] MEDS ORDERED: POTASSIUM CHLORIDE 10 MEQ TABCR PO ONE (08:30)
--- NOTE | 2025-09-11 08:35 | NUR ---
THIS RN IN THIS MORNING, RN TASHIA HELPING WITH MORNING MED PASS. PATIENT CURRENTLY SITTING UP IN BED, EATING BREAKFAST. C/O SOME NAUSEA WITH FOOD BUT STATES IT IS TOLERABLE AND DENIES NEED FOR ANYTHING ADDITIONAL. WINDOW CURTAIN OPENED SLIGHTLY TO LET SOME NATURAL LIGHT IN THIS MORNING. FULL ASSESSMENT COMPLETED, PT REPORT NAUSEA AND SOME ABDOMINAL TENDERNESS WITH PALPATION, BM REPORTED YESTERDAY BY PATIENT. IV SALINE LOCKED. HR IN THE 90'S WHILE EATING BREAKFAST. CALL LIGHT WITHIN REACH AT THIS TIME. PT DENIES ANY FURTHER NEEDS AT THIS TIME.
--- NOTE | 2025-09-11 08:59 | NUR ---
THIS RN INTO ROOM, PROVIDED PATIENT WITH EDUCATION ON PHENOBARBITAL TO REVIEW, SE DISCUSSED WITH PATIENT. EDUCATED PATIENT TO NOTIFY NURSES IF INCREASE FEELING OF DEPRESSION/SI THOUGHTS, PT DENIES ANY OF THOSE THOUGHTS AT THIS TIME. HANDOUT PROVIDED AND PT TO REVIEW AND ASK ANY FURTHER QUESTIONS AFTER REVIEWING.
--- NOTE | 2025-09-11 09:45 | NUR ---
THIS RN INTO ROOM TO CHECK ON PATIENT. AMY LAYING ON HER RIGHT SIDE, EYES CLOSED AND RESTING. THIS RN LEAVE PATIENT TO REST AT THIS TIME, CALL LIGHT IS WITHIN REACH.
--- NOTE | 2025-09-11 11:03 | NUR ---
THIS RN INTO ROOM, PATIENT HR IN THE 120'S WHILE TURNING IN BED. CIWA COMPLETED AT BEDSIDE, PT SCORE 8 (SWEATS, ANXIETY AND HEADACHE), PRN ATIVAN GIVEN ORDERED. PRN TYLENOL GIVE FOR HEADACHE, SEE MAR. PT AMBULATES TO BATHROOM, 200ML CONCENTRATED URINE, PATIENT BREAKFAST TRAY REMOVED, CURTAINS DRAWN TO HELP MANAGE HEADACHES SYMPTOMS, PT HAS ICE PACK BEHIND NAP OF NECK. CALL LIGHT WITHIN REACH. PT RESTING IN BED NOW AT THIS TIME, CALL LIGHT WITHIN REACH. ALL PT CARE NEEDS MET NOW.
--- NOTE | 2025-09-11 11:04 | NUR ---
UR DC REVIEW: CONTINUES ON CIWA PROTOCTOL WITH PHENOBARBITAL AND ATIVAN, TRENDING LABS DC PLAN PENDING HOME WITH OUTPATIENT ASSISTANCE VERSUS REHAB. ADD: 09/13-09/14/25 NO ESCALTIONS NEEDED
--- NOTE | 2025-09-11 12:09 | NUR ---
THIS RN INTO ROOM, PT AWAKENS AT THIS TIME. ALLYSON CHOW GETTING VITALS. PT AGREES TO GO FOR WALK WIHT AIR BRUSH ARTIST IN THE HALLWAY, MEDS GIVEN - SEE MAR. PT DECIDING ON IF SHE WANTS A SHOWER, SHE STATES SHE TOOK ONE LASTNIGHT, WILL SETUP FOR HER IF DESIRED BY AIR BRUSH ARTIST. LUNCH TRAY DELIVERED TO ROOM, PT AGRESS TO SIT UP IN CHAIR UPON RETURNING. ORAL CARE COMPLETED BY PATIENT AND HAIR BRUSHED INBATHROOM. PT STATES HER HEADACHE HAS PRETTY MUCH RESOLVED, FEELS BETTER BUT STATES SHE DOES NOT LIKE HOW MEDICINE MAKES HER SO SLEEPY. ALL PT CARE NEEDS MET AT THIS TIME.
--- NOTE | 2025-09-11 12:30 | NUR ---
PATIENT AND I WALKED TWO LAPS AROUND MED SURG. ALSO DOWN TO THE FRONT TOO SEE THE ONEIL TREE AND BACK TO CCU.
--- NOTE | 2025-09-11 13:50 | NUR ---
PT MOVED TO [facility] AT THIS TIME. ALL PT BELONGINGS MOVED WITH PATIENT. REPORT GIVEN TO GABRIEL. NO CONCERNS UPON TRANSFER.
[2025-09-11] MEDS ORDERED: MELATONIN 3 MG TAB PO PRN (14:30)
--- NOTE | 2025-09-11 15:34 | NUR ---
Resting, eyes closed, no s/sx distress or visual/auditory hallucinations, fine hand tremors present. Pleasant and cooperative, SL patent. Alarms in place
--- NOTE | 2025-09-11 18:11 | NUR ---
PATIENT IS LAYING IN BED. VITAL SIGNS AND I&OS WERE DONE. CALL LIGHT IS WITHIN REACH AND NO FURTHER NEEDS AT THIS TIME.
--- NOTE | 2025-09-11 19:29 | NUR ---
RECEIVED REPORT FROM SILVA RIOS. PT RESTING IN BED. WHITE BOARD UPDATED. DENIES ANY NEEDS OR CONCERNS AT THIS TIME.
--- NOTE | 2025-09-11 20:30 | NUR ---
PT RESTING IN BED, CALL LIGHT WITHIN REACH. VSS. ORIENTED X 4, PLEASANT AND COOPERATIVE. REPORTS MILD HEADACHE 4/10, BUT DECLINES PRN TYLENOL AT THIS TIME. CIWA SCORE 5, MILD HEADACHE, SWEATING AND BLE ITCHING. LSC. HRR. BTA. VOIDS WNL. LFA SL WNL. PT IS IND TO BR. PT IS MENSTRUATING-MANAGING IND.
--- NOTE | 2025-09-11 22:52 | NUR ---
PT ASLEEP ON LEFT SIDE, APPEARS COMFORTABLE.
--- NOTE | 2025-09-12 01:02 | NUR ---
CIWA SCORE 8. PT REPORTS ANXIETY AND INABILITY TO SLEEP W/ HEADACHE, SWEATS AND ITCHING. PT MEDICATED W/ 1MG ATIVAN PER CIWA PROTOCOL.
--- NOTE | 2025-09-12 03:23 | NUR ---
PT AWAKENED WHEN RN ENTERING ROOM. REPORTS NOT SLEEPING WELL. DENIES NEEDS AT THIS TIME.
[2025-09-12 05:22] LABS: BASOPHILS 0.6 % (0.1-1.2); EOSINOPHILS 2.9 % (0.7-5.8); LYMPHOCYTES 34.0 % (19.3-51.7); MCH 25.5 PG (25.6-32.2); MCHC 32.0 g/dL (32.2-35.5); MCV 79.6 fL (79.4-94.8); MONOCYTES 8.1 % (4.7-12.5); NEUTROPHILS 54.1 % (34.0-71.1); RBC 3.88 M/uL (3.93-5.22)
[2025-09-12 05:42] LABS: SMEAR REVIEW BLOOD SEE COMMENTS
[2025-09-12 05:51] LABS: ALT (SGPT) 48.0 U/L (14-59); AST (SGOT) 78.0 U/L (15-37); GLOMERULAR FILTRATION RATE,EST 119.0 mL/min (>60); PHOSPHORUS, INORGANIC 3.2 mg/dL (2.5-4.9); PROTEIN, TOTAL 7.5 g/dL (6.4-8.2); UREA NITROGEN 5.0 mg/dL (7-18)
[2025-09-12 06:19] VITALS: BP 121/84
[2025-09-12 06:29] VITALS: BP 121/84
--- NOTE | 2025-09-12 06:30 | NUR ---
PT AWAKENED BRIEFLY FOR AM VS. VSS. CIWA SCORE 2. FRESH WATER PROVIDED, AM MED ADMINISTERED. CALL LIGHT WITHIN REACH.
--- NOTE | 2025-09-12 07:14 | NUR ---
RECIEVED REPORT FROM SILVA THOMPSON. PT IS RESTING IN BED WITH EYES CLOSED. RR EVEN AND UNLABORED. CALL LIGHT IS WITHIN REACH.
--- NOTE | 2025-09-12 07:23 | NUR ---
PATIENT IN BED AT THIS TIME. MARKETING SUPPORT MANAGER CHARTED HOURLY ROUNDS. CALL LIGHT WITHIN REACH, NO FURTHER NEEDS.
[2025-09-12] MEDS ORDERED: MAGNESIUM OXIDE 400 MG TABLET PO ONE (07:45)
[2025-09-12] MEDS ORDERED: POTASSIUM CHLORIDE 10 MEQ TABCR PO ONE (07:45)
[2025-09-12] MEDS ORDERED: PANTOPRAZOLE SODIUM 40 MG TABEC PO SCH (09:00)
--- NOTE | 2025-09-12 09:04 | NUR ---
ALERT AND ORIENTED IN BED, EATING BREAKFAST. DENIES CM NEEDS AT THIS TIME. REMINDED HER JOSEPH HAS HER INFORMATION AND THEY WILL BE REACHING OUT TO HER. VERBALIZES UNDERSTANDING. NO CM NEEDS AT THIS TIME.
[2025-09-12] MEDS ORDERED: THERA TABLET400 MCG PO (09:29)
[2025-09-12] MEDS ORDERED: SUCRALFATE1 GM PO (09:29)
[2025-09-12] MEDS ORDERED: PHENOBARBITAL30 MG PO (09:37)
[2025-09-12] MEDS ORDERED: NALTREXONE HCL50 MG PO (09:38)
[2025-09-12 09:46] VITALS: BP 111/79
--- NOTE | 2025-09-12 09:48 | NUR ---
PATIENT IN BED AT THIS TIME. SCRAP HANDLER CHARTED VITALS AND I&O'S. CALL LIGHT WITHIN REACH, NO FURTHER NEEDS.
[2025-09-12 09:52] VITALS: BP 111/79
[2025-09-12] MEDS ORDERED: ATIVAN1 MG PO (10:07)
[2025-09-13] MEDS ORDERED: ATIVAN1 MG PO (03:46)
== END 2025-09-12 10:22 | disposition home or self-care (01) | DRG 897 ==
LOC: ED 13:10 → MS 15:41 → CCU 16:12 → MS 09-11 14:14
PROVIDERS: Emergency Medicine; ADMIT Student in an Organized Health Care Education/Training Program; ATTEND Student in an Organized Health Care Education/Training Program
PROC: HZ2ZZZZ Detoxification Services for Substance Abuse Treatment (ICD-10-PCS; principal; 2025-09-09)
DX: F10.239 Alcohol dependence with withdrawal, unspecified (principal); D61.818 Other pancytopenia; I10 Essential (primary) hypertension; K76.0 Fatty (change of) liver, not elsewhere classified; F10.229 Alcohol dependence with intoxication, unspecified; Y90.8 Blood alcohol level of 240 mg/100 ml or more; K21.9 Gastro-esophageal reflux disease without esophagitis; Z79.899 Other long term (current) drug therapy; Z88.8 Allergy status to other drugs, medicaments and biological substances
CPT/HCPCS: 36415; 80053; 81001; 83735; 84100; 84703; 85025; 85060; A9270; G0480; J0780; J2060; J2405; J2470; J2560; J3411; J3475; J7030; J7121

== ENCOUNTER 2025-09-13 01:32 | Emergency (ER) | payer OTHER ==
[~2025-09-13] VITALS: Ht 160 cm; Wt 59.8 kg
--- NOTE | ~2025-09-13 | EKG ---
[facility] [address] [place], [place] [address] Draft EK completed, results pending confirmation PATIENT NAME: DON PEARSON Electrocardiogram DATE OF : 83 PHYSICIAN: PRELIMINARY REPORT #: [id number] REPORT IS CONFIDENTIAL AND NOT TO BE RELEASED WITHOUT AUTHORIZATION
[~2025-09-13 01:32] MED LIST changes: +ATIVAN1 MG PO; +LORAZEPAM1 MG PO; +PHENOBARBITAL30 MG PO; +PRILOSEC OTC20 MG PO; +SUCRALFATE1 GM PO; +THERA TABLET400 MCG PO
[2025-09-13] MEDS ORDERED: LORazepam 2 MG/ML VIAL IV ONE (02:00)
[2025-09-13] MEDS ORDERED: LACTATED RINGER'S 1,000 ML IV ONE (02:00)
[2025-09-13] MEDS ORDERED: SODIUM CHLORIDE 0.9% 1,000 ML IV ONE (02:00)
[2025-09-13] MEDS ORDERED: FOLIC ACID 1 MG/0.2 ML ML IV ONE (02:30)
[2025-09-13] MEDS ORDERED: THIAMINE HCL 200 MG/2 ML VIAL IV ONE (02:30)
[2025-09-13] MEDS ORDERED: LORazepam 2 MG/ML VIAL IV/IM PRN (02:30)
[2025-09-13] MEDS ORDERED: MAGNESIUM SULFATE 2 GM/50 ML BAG IV ONE (02:30)
[2025-09-13 03:10] LABS: BASOPHILS 0.3 % (0.1-1.2); EOSINOPHILS 1.1 % (0.7-5.8); LYMPHOCYTES 32.1 % (19.3-51.7); MCH 26.0 PG (25.6-32.2); MCHC 31.7 g/dL (32.2-35.5); MCV 82.0 fL (79.4-94.8); MONOCYTES 11.9 % (4.7-12.5); NEUTROPHILS 53.8 % (34.0-71.1); RBC 3.73 M/uL (3.93-5.22)
[2025-09-13 03:35] LABS: ALCOHOL, MEDICAL 347.0 mg/dL (<3); ALT (SGPT) 69.0 U/L (14-59); AST (SGOT) 95.0 U/L (15-37); GLOMERULAR FILTRATION RATE,EST 120.0 mL/min (>60); PROTEIN, TOTAL 8.3 g/dL (6.4-8.2); UREA NITROGEN 2.0 mg/dL (7-18)
[2025-09-13] MEDS ORDERED: LORazepam 1 MG HOME.PACK PO ONE (03:45)
[2025-09-13] MEDS ORDERED: ATIVAN1 MG PO (03:46)
[2025-09-13 04:06] VITALS: BP 133/87
--- OUTSIDE RECORDS SUMMARY | 2025-09-13 06:22 | XMS ---
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 E.D. VISIT COUNT (12 MO.) 6 [facility] [address] [facility] TOTAL 11 NOTE: Visits indicate total known visits. ED/UCC VISIT TRACKING (12 MO.) 09/13/2025 01:36 [facility] TYPE: Emergency COMPLAINT: - HIGH HEART RATE/ALTERED 09/09/2025 13:11 [facility] TYPE: Emergency COMPLAINT: - ALCOHOL WITHDRAWAL 09/02/2025 21:05 [facility] TYPE: Emergency COMPLAINT: - ALCOHOL WITHDRAWL DIAGNOSES: - Alcohol abuse with withdrawal, unspecified - Alcohol use, unspecified, uncomplicated - Alcoholic gastritis without bleeding - Allergy status to other drugs, medicaments and biological substances - Essential (primary) hypertension - Urinary tract infection, site not specified 08/05/2025 19:01 [facility] [place] TYPE: Emergency DIAGNOSES: - Alcohol use, unspecified with withdrawal, uncomplicated - ALCOHOL WITHDRAWL 07/15/2025 23:22 [facility] [place] TYPE: Emergency COMPLAINT: - ALCOHOL DETOX DIAGNOSES: - ALCOHOL DETOX 07/13/2025 21:09 [facility] TYPE: Emergency COMPLAINT: - ETOH WITHDRAWAL DIAGNOSES: - Alcohol abuse with intoxication, unspecified - Allergy status to other drugs, medicaments and biological substances - Essential (primary) hypertension - Nausea with vomiting, unspecified - Other senior care (current) drug therapy - Other pancytopenia [facility] DIAGNOSES: - Acute kidney failure, unspecified - Alcohol use, unspecified with intoxication, uncomplicated - Alcohol use, unspecified with withdrawal, uncomplicated - Hypo-osmolality and hyponatremia - Alcohol Detox - Withdrawal (Alcohol) [facility] COMPLAINT: - WITHDRAWL SYMPTOMS DIAGNOSES: - Alcohol use, unspecified with withdrawal, unspecified - Allergy status to other drugs, medicaments and biological substances - Other senior care (current) drug therapy 05/20/2025 16:27 [facility] [place] TYPE: Emergency DIAGNOSES: - Alcohol use, unspecified with withdrawal, uncomplicated - ALCOHOL DETOX 04/27/2025 21:05 [facility] [place] TYPE: Emergency DIAGNOSES: - Alcohol use, unspecified with intoxication, uncomplicated - Alcohol use, unspecified, uncomplicated - Alcohol detox 01/04/2025 17:23 [facility] TYPE: Emergency COMPLAINT: - WITHDRAWL DIAGNOSES: - Alcohol abuse with withdrawal, unspecified - Other senior care (current) drug therapy - Procedure and treatment not carried out because of patient's decision for other reasons - Suicidal ideations INPATIENT VISIT TRACKING (12 MO.) 09/09/2025 15:41 [facility] TYPE: Medical Surgical COMPLAINT: - ACUTE ALCOHOL WITHDRAWAL 07/15/2025 23:22 [facility] TYPE: Medical Surgical DIAGNOSES: - Alcohol use, unspecified with withdrawal, unspecified - Nausea with vomiting, unspecified 06/27/2025 13:52 [facility] ([facility]) TYPE: Medical Surgical DIAGNOSES: - Acute kidney failure, unspecified - Alcohol dependence with intoxication, unspecified - Alcohol use, unspecified with intoxication, uncomplicated - Alcohol use, unspecified with withdrawal, uncomplicated - Hypo-osmolality and hyponatremia - Nausea with vomiting, unspecified - Other pancytopenia [id number]
== END 2025-09-13 04:06 | disposition home or self-care (01) ==
LOC: ED 01:32
PROVIDERS: Family Medicine
DX: F10.90 Alcohol use, unspecified, uncomplicated (principal); I10 Essential (primary) hypertension; Z79.899 Other long term (current) drug therapy; Z88.8 Allergy status to other drugs, medicaments and biological substances
CPT/HCPCS: 36415; 80053; 82803; 83735; 84100; 85025; 85060; 93005; 93010; 96365; 96375; 99284-25; G0480; J2060; J2405; J3411; J3475; J7030